=== PATIENT | female | born 1970 | race Caucasian/White ===

== ENCOUNTER 2022-03-12 09:53 | Outpatient (CLI) | payer BC | END 2022-03-12 09:54 | disposition home or self-care (01) | LOC: LABBT 09:53 | PROVIDERS: ATTEND Orthopaedic Surgery | DX: Z01.818 Encounter for other preprocedural examination (principal) | CPT/HCPCS: 71046; 80048; 81003; 85025; 85610; 86850; 86900; 86901; 87081; 87811; 93005; 93010 ==

== ENCOUNTER 2022-03-17 08:52 | Observation (INO) | payer BC ==
[2022-03-12 11:35] LABS: Bilirubin Neg (Negative); Blood, Urine Negative (Negative); Clarity Clear (Clear); Glucose, Urine (Dipstick) Normal (Negative); Ketone, Urine Negative (Negative); Leukocyte Negative (Negative); Nitrite Negative (Negative); Protein, Urine (Dipstick) Negative (Neg-Trace); Urobilinogen Normal mg/dL (Less than 2)
[2022-03-12 11:37] LABS: #Basophils 0.1 10x3/uL (0.0-0.2); #Eosinphils 0.4 10x3/uL (0.0-0.5); #Monocytes 0.7 10x3/uL (0.0-1.1); #Neutrophils 4.2 10x3/uL (1.5-8.4); %Basophils 0.9 % (0.0-2.0); %Eosinophils 4.7 % (0.0-6.0); %Lymphocytes 33.2 % (18.0-47.0); %Monocytes 9.2 % (0.0-10.0); %Neutrophils 51.6 % (40.0-75.0); Hemoglobin 13.9 g/dL (12.0-15.5); Mean Corpuscular HGB CONC 32.9 g/dL (32.0-36.0); Mean Corpuscular Hemoglobin 28.5 pg (27.0-33.0); Mean Corpuscular Volume 86.7 fl (81.6-98.3); Mean Platelet Volume 11.5 fl (7.4-10.4); Platelet Count 244 10x3/uL (150-450); RBC Distribution Width 13.4 % (11.5-14.5); Red Blood Cell (RBC) Count 4.88 10x6/uL (3.90-5.03); White Blood Cell (WBC) Count 8.1 10x3/uL (3.5-10.5)
[2022-03-12 11:58] LABS: INR-International Normal Ratio 0.9
[2022-03-12 12:00] LABS: Anion Gap 12 mmol/L (10-20); BUN (Urea Nitrogen) 15 mg/dL (9.8-20.1); Calc. Creatinine Clearance 0 mL/min (70-130); Calcium 10.2 mg/dL (7.8-10.44); Carbon Dioxide 29 mmol/L (22-29); Chloride 103 mmol/L (98-107); Estimated GFR 104; Glucose 99 mg/dL (70-105); Potassium 4.3 mmol/L (3.5-5.1); Sodium 140 mmol/L (136-145)
[2022-03-13 13:27] VITALS: BMI 40.8
[2022-03-17] MEDS ORDERED: Vancomycin (BATCH) 1.5 GRAM/300 ML BAG ONE (09:11)
[2022-03-17] MEDS ORDERED: Tranexamic Acid 1,000 MG/10 ML VIAL ONE ×2 (09:11→13:19)
[2022-03-17] MEDS ORDERED: Sodium Chloride 0.9% 100 ML ONE ×2 (09:11→11:16)
[2022-03-17] MEDS ORDERED: fentaNYL Citrate/PF 100 MCG/2 ML SYRINGE ONE (09:53)
[2022-03-17] MEDS ORDERED: Ondansetron HCl/PF 4 MG/2 ML Vial IVP PRN (10:19)
[2022-03-17] MEDS ORDERED: Ketorolac Tromethamine 30 MG/ML VIAL IVP PRN (10:19)
[2022-03-17] MEDS ORDERED: HYDROmorphone 2 MG/ML VIAL SLOW IVP PRN (10:19)
[2022-03-17] MEDS ORDERED: Promethazine HCl 25 MG/ML VIAL IM PRN ×2 (10:19→11:45)
[2022-03-17] MEDS ORDERED: Meperidine HCl/PF 25 MG/ML VIAL SLOW IVP PRN ×2 (10:19)
[2022-03-17] MEDS ORDERED: Promethazine HCl 25 MG/ML VIAL IVPB PRN (10:19)
[2022-03-17] MEDS ORDERED: Midazolam HCl 2 mg/2 ml Vial ONE (10:38)
[2022-03-17] MEDS ORDERED: Fentanyl 100 MCG/2 ML VIAL ONE (10:38)
[2022-03-17] MEDS ORDERED: Dexamethasone 4 mg/ml Vial ONE (10:58)
[2022-03-17] MEDS ORDERED: CEFAZOLIN 2 GM VIAL ONE (11:16)
[2022-03-17] MEDS ORDERED: Bupivacaine HCl 0.5%/Epinephrine 1:200,000/PF 30 ml Vial ONE (11:29)
[2022-03-17] MEDS ORDERED: PROPOFOL 200 MG/20 ML VIAL ONE (11:29)
[2022-03-17] MEDS ORDERED: Ondansetron PF 4 MG/2 ML Vial ONE (11:29)
[2022-03-17] MEDS ORDERED: Lidocaine 1% PF 5 ML VIAL ONE (11:29)
[2022-03-17] MEDS ORDERED: Dexamethasone 20 MG/5 ML VIAL ONE (11:29)
[2022-03-17] MEDS ORDERED: ePHEDrine 50 MG/ML VIAL ONE (11:29)
[2022-03-17] MEDS ORDERED: diphenhydrAMINE 25 MG CAP PO PRN (11:45)
[2022-03-17] MEDS ORDERED: Ondansetron PF 4 MG/2 ML Vial IVP PRN (11:45)
[2022-03-17] MEDS ORDERED: traMADol HCl 50 MG TAB PO PRN (11:45)
[2022-03-17] MEDS ORDERED: Acetaminophen 325 MG TAB PO PRN (11:45)
[2022-03-17] MEDS ORDERED: Fentanyl 100 MCG/2 ML VIAL SLOW IVP PRN (11:45)
[2022-03-17] MEDS ORDERED: Tranexamic Acid 1,000 MG in Sodium Chloride 0.9% 100 ML IVPB SCH (11:45)
[2022-03-17] MEDS ORDERED: Zolpidem Tartrate 5 MG TAB PO PRN (11:45)
[2022-03-17] MEDS ORDERED: Bupivacaine 0.25% 10 ML VIAL ONE (12:12)
[2022-03-17] MEDS ORDERED: HYDROmorphone 2 MG/ML VIAL ONE (13:19)
[2022-03-17] MEDS ORDERED: Promethazine HCl 25 MG/ML VIAL ONE (13:51)
[2022-03-17] MEDS ORDERED: Ketorolac Tromethamine 30 MG/ML VIAL ONE (14:12)
[2022-03-17] MEDS: Ketorolac Tromethamine 30 MG/ML VIAL IVP SCH ×2 (14:13→21:51)
[2022-03-17] MEDS ORDERED: hydrALAZINE 20 MG/ML VIAL ONE (14:33)
[2022-03-17] MEDS: HYDROcodone/Acetaminophen 10/325 mg Tablet PO PRN ×2 (16:54→21:50)
[2022-03-17] MEDS: Sodium Chloride 0.9% 1,000 ML IV SCH ×2 (18:47→21:45)
[2022-03-17] MEDS: CEFAZOLIN 2 GM in Sodium Chloride 0.9% 100 ML IVPB SCH (21:46)
[2022-03-17] MEDS: Aspirin 81 mg Enteric Coated Tablet PO SCH (21:51)
[2022-03-17] MEDS: Pregabalin 75 MG CAP PO SCH (21:51)
[2022-03-17] MEDS ORDERED: Vancomycin 1.5 GRAM/300 ML BAG 1.5 GM in Premix Bag 1 BAG IVPB SCH (23:00)
[2022-03-18] MEDS: CEFAZOLIN 2 GM in Sodium Chloride 0.9% 100 ML IVPB SCH (04:33)
[2022-03-18 05:29] LABS: Hemoglobin 11.3 g/dL (12.0-16.0); Mean Corpuscular HGB CONC 32.6 g/dL (32.0-36.0); Mean Corpuscular Hemoglobin 29.5 pg (27.0-31.0); Mean Corpuscular Volume 90.4 fL (78.0-98.0); Mean Platelet Volume 8.9 fL (7.4-10.4); Platelet Count 180 thou/uL (130-400); RBC Distribution Width 12.5 % (11.5-14.5); Red Blood Cell (RBC) Count 3.84 mill/uL (4.20-5.40); White Blood Cell (WBC) Count 13.1 thou/uL (4.8-10.8)
[2022-03-18] MEDS: HYDROcodone/Acetaminophen 10/325 mg Tablet PO PRN ×3 (06:11→13:36)
[2022-03-18] MEDS: Ketorolac Tromethamine 30 MG/ML VIAL IVP SCH ×2 (06:11→13:37)
[2022-03-18] MEDS ORDERED: Ferrous Gluconate 324 MG TAB PO SCH (08:00)
[2022-03-18] MEDS: Aspirin 81 mg Enteric Coated Tablet PO SCH (08:52)
[2022-03-18] MEDS: Pregabalin 75 MG CAP PO SCH (08:54)
[2022-03-18] MEDS ORDERED: Trospium 20 MG TAB PO SCH (09:00)
[2022-03-18] MEDS ORDERED: Non-Formulary Item 1 EACH (Mv-Mn/Folic Ac/Calcium/Vit K1 [Women's 50 Plus Multivit Tab] 1 PO SCH (09:00)
[2022-03-18] MEDS ORDERED: Lisinopril 20 MG TAB PO SCH (09:00)
[2022-03-18] MEDS ORDERED: Hydrochlorothiazide 25 MG TAB PO SCH (09:00)
[2022-03-18] MEDS ORDERED: Multivitamin W/ Minerals 1 TAB PO SCH (09:00)
[2022-03-18] MEDS ORDERED: Senokot S 8.6-50 MG TAB PO SCH (09:00)
[2022-03-18 16:31] VITALS: BP 115/68; TEMP 97.9
[2022-03-18] MEDS: Sodium Chloride 0.9% 1,000 ML IV SCH (16:49)
== END 2022-03-18 16:00 | disposition home or self-care (01) ==
LOC: SDC 08:52 → EDSTATUS 10:00 → SJJU 15:10
PROVIDERS: ADMIT Orthopaedic Surgery; ATTEND Orthopaedic Surgery
PROC: 0SRD0J9 Replacement of Left Knee Joint with Synthetic Substitute, Cemented, Open Approach (ICD-10-PCS; principal; 2022-03-17)
PROC: 8E0YXBZ Computer Assisted Procedure of Lower Extremity (ICD-10-PCS; 2022-03-17)
DX: M17.12 Unilateral primary osteoarthritis, left knee (principal); J45.909 Unspecified asthma, uncomplicated; I10 Essential (primary) hypertension; E66.01 Morbid (severe) obesity due to excess calories; Z68.41 Body mass index [BMI] 40.0-44.9, adult; Z86.16 Personal history of COVID-19; Z79.1 Long term (current) use of non-steroidal anti-inflammatories (NSAID); Z79.899 Other long term (current) drug therapy; Z20.822 Contact with and (suspected) exposure to COVID-19
CPT/HCPCS: 36415; 80048; 81003; 85025; 85027; 85610; 86850; 86900; 86901; 87081; 87811; C1713; C1776; J0360; J0690; J1100; J1170; J1885; J2250; J2405; J2550; J2704; J3010; J3370; J3490; S0020